=== PATIENT | male | born 1960 | race Caucasian/White ===

== ENCOUNTER 2019-05-15 12:46 | Emergency (ER) | payer OTHER ==
[~2019-05-15] VITALS: Ht 167.6 cm; Wt 72.7 kg
[~2019-05-15 12:46] MED LIST: LANT3I SC; LIPA1CAP6 PO; PROP20TA4 PO; SITA50TA2 PO; TAMS-14 PO
[2019-05-15 13:00] VITALS: Ht 167.6 cm; Wt 72.7 kg
[2019-05-15] MEDS ORDERED: SOD CHLORIDE 0.9% 1,000 ML IV STA (13:03)
[2019-05-15] MEDS ORDERED: ONDANSETRON 4 MG INJ IV STA ×2 (13:03→14:00)
[2019-05-15] MEDS ORDERED: morphine 4 MG/ML VIAL IV STA (13:03)
--- NOTE | 2019-05-15 13:04 | ERD ---
ER Documentation Chief Complaint Chief Complaint BIBRA from home: NV, abdominal pain x1hr BOBBIN WINDER HPI 58-year-old male presenting with right upper abdominal pain that started this morning with associated nausea and nonbloody, nonbilious vomiting. He is complaining of a stabbing pain to his right upper abdomen that is constant. No associated chest pain, shortness of breath, diarrhea, constipation, dysuria, hematuria, fever or chills. He states that he has a history of cirrhosis and gallstones, however his gallstones have not caused him problems for years. He is normally seen at [facility] for his liver problems but is not on the transplant list. He was treated for hepatitis C in the past and is no longer drinking alcohol. ROS All systems reviewed and are negative except as per history of present illness. Medications Home Meds Reported Medications Insulin Glargine* (Lantus*) 100 Unit/Ml Soln, 0 SC QAM, #1 VIAL 20-40 UNITS NEEDED 05/15/19 Tamsulosin Hcl* (Flomax*) 0.4 Mg Cap.er.24h, 0.4 MG PO HS, CAP 05/15/19 Lmilwv-Zezgfckn-Zgzhqtq* (Armaan DR* 24,000) 24,000 L-76,000-120,000 Unit Capsule.dr, 1 CAP PO WITH MEALS, CAP 05/15/19 Sitagliptin* (Januvia*) 50 Mg Tablet, 50 MG PO DAILY, #30 TAB 05/15/19 Propranolol Hcl* (Propranolol Hcl*) 20 Mg Tablet, 20 MG PO BID, TAB 05/15/19 Allergies Allergies: Coded Allergies: No Known Allergy (Unverified , 05/15/19) PMhx/Soc History of Surgery: Yes (L and R inguinal hernias, appendectomy) Hx Miscellaneous Medical Probl: Yes ( diabetes, cirrhosis, hepatitis C status post treatment) Hx Alcohol Use: No (Quit drinking 1 year ago) Hx Substance Use: No Hx Tobacco Use: No (quit smoking 25ya) Smoking Status: Former smoker FmHx Family History: No diabetes Physical Exam Vitals Vital Signs Date Temp Pulse Resp B/P (MAP) Pulse Ox O2 O2 Flow FiO2 Time Delivery Rate 05/15/19 99.1 92 20 132/78 95 Mask 10.0 15:22 (96) 05/15/19 98.6 81 22 95/53 (67) 98 13:00 Physical Exam Const: Ill-appearing, in distress secondary to pain and vomiting Head: Atraumatic Eyes: Normal Conjunctiva ENT: Normal External Ears, Nose and Mouth. dry mucous membranes. Neck: Full range of motion. No meningismus. Resp: Clear to auscultation bilaterally Cardio: Regular rate and rhythm, no murmurs Abd: Soft, mildly distended, right upper quadrant moderately tender to palpation. Mild diffuse tenderness to palpation. No rebound tenderness.. Normal bowel sounds Skin: No petechiae or rashes Back: No midline or flank tenderness Ext: No cyanosis, or edema Neur: Awake and alert, normal speech, moving all extremities, no facial asymmetry Psych: Normal Mood and Affect Result Diagram: 05/15/19 1305 05/15/19 1305 Results 24 hrs Laboratory Tests Test 05/15/19 12:55 05/15/19 13:05 05/15/19 15:52 D-Dimer 904.35 ng/ml D-Dimer Comment White Blood Count 4.0 10^3/ul Red Blood Count 4.92 10^6/ul Hemoglobin 16.9 g/dl Hematocrit 48.3 % Mean Corpuscular Volume 98.2 fl Mean Corpuscular Hemoglobin 34.3 pg Mean Corpuscular 35.0 g/dl Hemoglobin Concent Red Cell Distribution Width 14.2 % Platelet Count 92 10^3/UL Mean Platelet Volume 10.5 fl Immature Granulocytes % 0.200 % Neutrophils % 61.2 % Lymphocytes % 28.9 % Monocytes % 5.0 % Eosinophils % 4.5 % Basophils % 0.2 % Nucleated Red Blood Cells % 0.0 /100WBC Immature Granulocytes # 0.010 10^3/ul Neutrophils # 2.5 10^3/ul Lymphocytes # 1.2 10^3/ul Monocytes # 0.2 10^3/ul Eosinophils # 0.2 10^3/ul Basophils # 0.0 10^3/ul Nucleated Red Blood Cells # 0.0 10^3/ul Sodium Level 138 mmol/L Potassium Level 3.9 mmol/L Chloride Level 110 mmol/L Carbon Dioxide Level 20 mmol/L Anion Gap 8 Blood Urea Nitrogen 14 mg/dl Creatinine 0.60 mg/dl Est Glomerular Filtrat > 60 mL/min Rate mL/min Glucose Level 314 mg/dl Calcium Level 8.9 mg/dl Total Bilirubin 2.0 mg/dl Direct Bilirubin 0.00 mg/dl Indirect Bilirubin 2.0 mg/dl Aspartate Amino 76 IU/L Transf (AST/SGOT) Alanine 54 IU/L Aminotransferase (ALT/SGPT) Alkaline Phosphatase 163 IU/L Troponin I < 0.012 ng/ml Total Protein 7.6 g/dl Albumin 3.5 g/dl Globulin 4.10 g/dl Albumin/Globulin Ratio 0.85 Lipase 178 U/L Urine Color YELLOW Urine Clarity CLEAR Urine pH 5.0 Urine Specific Wade 1.011 Urine Ketones NEGATIVE mg/dL Urine Nitrite NEGATIVE mg/dL Urine Bilirubin NEGATIVE mg/dL Urine Urobilinogen NEGATIVE mg/dL Urine Leukocyte Esterase NEGATIVE Shiloh/ul Urine Hemoglobin NEGATIVE mg/dL Urine Glucose 3+ mg/dL Urine Total Protein NEGATIVE mg/dl Current Medications Medications Dose Sig/Ziggy Start Time Status Last (Trade) Ordered Route PRN Stop Time Admin Dose Reason Admin Sodium 1,000 ml @ Q1H STAT 05/15/19 DC 05/15/19 Chloride 1,000 mls/hr IV 13:03 05/15/19 13:15 14:02 Morphine 4 mg ONCE STAT 05/15/19 DC 05/15/19 Sulfate IV 13:03 05/15/19 13:15 (morphine) 13:04 Ondansetron 4 mg ONCE STAT 05/15/19 DC 05/15/19 HCl (Zofran IV 13:03 05/15/19 13:15 Inj) 13:04 Ondansetron 4 mg ONCE STAT 05/15/19 DC 05/15/19 HCl (Zofran IV 14:00 05/15/19 14:09 Inj) 14:01 10 mg ONCE ONCE 05/15/19 DC 05/15/19 Metoclopramid IV 15:30 05/15/19 15:21 e HCl 15:31 (Reglan) IV Flush 10 ml STK-MED 05/15/19 DC 05/15/19 (NS 10 ml) ONCE .ROUTE 15:38 05/15/19 16:14 15:39 Sodium 100 ml @ ud STK-MED 05/15/19 DC 05/15/19 Chloride ONCE .ROUTE 15:38 05/15/19 16:14 15:39 Iohexol 100 ml @ ud STK-MED 05/15/19 DC 8/3/19 ONCE .ROUTE 15:38 05/15/19 16:14 15:39 Iohexol 50 ml STK-MED 05/15/19 DC 05/15/19 (Omnipaque ONCE .ROUTE 15:38 05/15/19 16:13 350mg/ ml) 15:39 Procedures/MDM EMERGENT LABS AND DIAGNOSTIC STUDIES: Lab Results above were reviewed and interpreted by me. CBC: Mild leukopenia, thrombocytopenia CMP: Evidence of chronic liver disease with no significant abnormalities. Hyperglycemic without evidence of significant acidosis. No evidence of clinically significant electrolyte abnormality, acidosis, renal failure, hyp oglycemia Lipase: no evidence of pancreatitis Troponin within normal limits, not indicative of cardiac ischemia UA: 3+ glucose. No ketones. No evidence of infection ABG with mild alkalemia, hypoxemia on 6 L nasal cannula 12-lead EKG was interpreted by Matt Antunez MD: Normal Sinus Rhythm with ventricular rate of 78 beats per minute Incomplete right bundle branch block No acute ST or T wave changes suggestive of acute ischemia or STEMI. Radiology Results as interpreted by Radiology below were reviewed by Ryan Antunez MD: Chest x-ray shows no acute abnormalities CTA chest and abdomen show no significant acute abnormalities Ultrasound gallbladder shows cholelithiasis without acute abnormalities Initial Nursing notes reviewed. Previous Medical Records requested via the Electronic Health Record. EMERGENCY DEPARTMENT COURSE / MEDICAL DECISION MAKING: Patient is presenting with severe right-sided abdominal pain with nausea and vomiting. He was noted to be hypoxic with a good waveform at bedside., However there is no evidence of biliary obstruction or cholecystitis on the ultrasound. Labs showed evidence of chronic liver disease, but no significant abnormalities. Given his abdominal tenderness, ultrasound was done to evaluate for possible ch olecystitis. Labs did show evidence of hyperglycemia without evidence of DKA. Given his persistent hypoxia on room air which was improving with supplemental oxygen, d-dimer was done to evaluate for possible PE as his risk is low. However d-dimer was significantly elevated so CTA of the chest was done. This did not show any evidence of PE or dissection. No other lung abnormalities were seen. CTA of the abdomen was done as well to evaluate for possible bowel ischemia versus other etiology of acute surgical abdomen. Only cirrhotic changes were noted. At this time the etiology of his symptoms is unclear. He continues to have nausea with vomiting for which she has required multiple doses of antiemetics. His pain was however pretty well controlled with analgesics. I recommended admission for observation and further work-up. Patient is agreeable with this plan. Given his insurance, he will be transferred to [facility]. Spoke with Terry, who is managing the case. Patient will be arranged for transfer. At this time he is stable for transfer on supplemental oxygen. Vitals are otherwise stable. Critical Care Time: 35 minutes Treatments/Evaluations: Close monitoring and treatment of unstable vital signs, cardiorespiratory, and neurologic status, while maintaining tight balance of fluid, respiratory, and cardiac interventions. This time includes discussing the case with the patient and the patients family. This time does not include all procedures stated elsewhere in this record. This time also includes reviewing old records, labs and radiological studies. This time includes examining and re- examining the patient. Additionally, this time also includes arranging care with admitting and consulting physicians. Departure Diagnosis: Primary Impression: Abdominal pain Abdominal location: right upper quadrant Qualified Codes: R10.11 - Right upper quadrant pain Additional Impressions: Acute respiratory failure with hypoxia History of cirrhosis Intractable nausea and vomiting Vomiting type: unspecified Qualified Codes: R11.2 - Nausea with vomiting, unspecified Hyperglycemia Condition: KENDRA Edmond MD May 15, 2019 13:04
[2019-05-15] MEDS ORDERED: METOCLOPRAMIDE 10 MG INJ IV ONE (15:30)
[2019-05-15] MEDS ORDERED: SOD CHLORIDE 0.9% 100 ML ONE (15:38)
[2019-05-15] MEDS ORDERED: IOHEXOL 350MG/ML 50 ML BTL ONE (15:38)
[2019-05-15] MEDS ORDERED: IOHEXOL 100 ML ONE (15:38)
[2019-05-15 22:25] VITALS: BP 95/59; PULSE 88; RESP 19
[2019-05-15] MEDS ORDERED: ACETAMINOPHEN 325 MG TAB PO ONE (23:00)
== END 2019-05-15 23:03 | disposition short-term general hospital (02) ==
LOC: E/R 12:46
DX: J96.01 Acute respiratory failure with hypoxia (principal); R11.2 Nausea with vomiting, unspecified; E11.65 Type 2 diabetes mellitus with hyperglycemia; Z79.4 Long term (current) use of insulin; Z87.19 Personal history of other diseases of the digestive system; Z87.891 Personal history of nicotine dependence
CPT/HCPCS: 36415; 36600; 71045; 71275; 75635; 76705; 80053; 81003; 82803; 83690; 84484; 85025; 85378; 93005; 96374; 96375; 96376; J2270; J2405; J2765; J7030; Q9967; Z7502; Z7610